=== PATIENT | female | born 1970 | race Caucasian/White ===

== ENCOUNTER 2021-06-19 21:51 | Emergency (ER) | payer OTHER ==
[~2021-06-19 21:51] MED LIST: BUSPAR 10MG10 MG PO; NEURONTIN 400400 MG PO; PERCOCET 5/325 T1 EA PO; VOLTAREN EC 7575 MG PO; ZYVOX600 MG PO
== END 2021-06-20 01:40 | disposition left against medical advice (07) ==
LOC: ER1 21:51
DX: Z53.21 Procedure and treatment not carried out due to patient leaving prior to being seen by health care provider (principal)